=== PATIENT | female | born 1985 | race Caucasian/White ===

== ENCOUNTER 2019-05-08 14:20 | Emergency (ER) | payer OTHER ==
[~2019-05-08] VITALS: Ht 154.9 cm; Wt 55.3 kg
[2019-05-08 14:37] VITALS: Ht 154.9 cm; Wt 55.3 kg
[2019-05-08 14:57] LABS: BASOPHIL % 0.1 % (0-2); RED CELL DISTRIBUTION WIDTH 13.9 % (11.5-14.5)
[2019-05-08 14:58] LABS: PLATELET COUNT 471 x10^3mcL (130-400)
[2019-05-08 15:11] LABS: CARBON DIOXIDE 24.2 mmol/L (21-32); CHLORIDE SERUM 99 mmol/L (98-107); CREATININE SERUM 0.7 mg/dL (0.6-1.0); GFR1 > 60 mL/min; GLUCOSE SERUM 371 mg/dL (74-106); POTASSIUM SERUM 4.1 mmol/L (3.5-5.1); SODIUM SERUM 136 mmol/L (136-145)
[2019-05-08 15:16] LABS: ALBUMIN 3.6 g/dL (3.4-5.0); ALKALINE PHOSPHATASE 119 U/L (46-116); ALT/SGPT 14 U/L (14-59); AMYLASE 38 U/L (25-115); AST/SGOT 8 U/L (15-37); BILIRUBIN TOTAL 0.57 mg/dL (0.20-1.00); LIPASE 87 IU/L (73-393); TOTAL PROTEIN, SERUM 8.2 g/dL (6.4-8.2)
[2019-05-08 15:45] LABS: microscopic required? YES; urine erythrocyte 3+ (NEGATIVE)
[2019-05-08 18:31] VITALS: BP 97/67
== END 2019-05-08 18:31 | disposition home or self-care (01) ==
LOC: ED 14:20
PROVIDERS: Emergency Medicine
DX: R10.814 Left lower quadrant abdominal tenderness (principal); R10.813 Right lower quadrant abdominal tenderness; E11.65 Type 2 diabetes mellitus with hyperglycemia
CPT/HCPCS: J1885; J2405; J7030